=== PATIENT | female | born 1950 | race Caucasian/White ===

== ENCOUNTER → 2017-10-11 | Outpatient (RCR) | payer MEDICARE, OTHER ==
--- NOTE | 2017-09-13 13:28 | Diagnostic Imaging Report ---
PROCEDURE: L-SPINE 3V COMPARISON: None. INDICATIONS: SORE ON SACRUM, PRESSURE SORE, OSTEOMYELTITS FINDINGS: Lumbar spine demonstrates mild rotoscoliosis centered at L4 vertebral body. Mild wedge compression deformity of L2 vertebral body. Mild multilevel disc space narrowing especially at L3-L4. The paraspinal soft tissues are normal. Severe vascular calcifications. CONCLUSION: Mild to moderate diffuse degenerative changes in the lumbar spine. Mild wedge compression deformity of L2 vertebral body. Dictated by: Steve Adames M.D. on 09/13/2017 at 13:36 Electronically approved by: Steve Adames M.D. on 09/13/2017 at 13:36
--- NOTE | 2017-09-13 13:29 | Diagnostic Imaging Report ---
PROCEDURE:SACRUM \T\ COCCYX TECHNIQUE:2 views of the sacrum INDICATION:Sacral decubitus ulcer. COMPARISON:None. FINDINGS: Moderate degenerative changes in both SI joints. No periosteal reaction is identified to suggest osteomyelitis. CONCLUSION: No evidence of osteomyelitis. Dictated by: Steve Adames M.D. on 09/13/2017 at 13:37 Electronically approved by: Steve Adames M.D. on 09/13/2017 at 13:37
[2017-10-04 11:54] LABS: BASOPHILS # (AUTO) 0.1 (0.0-0.1); BASOPHILS % 0.9 % (0.0-1.0); EOSINOPHILS # (AUTO) 0.2 (0.0-0.4); EOSINOPHILS % 4.1 % (0.0-6.0); HEMATOCRIT 35.7 % (34.2-44.1); HEMOGLOBIN 11.5 g/dL (12.0-16.0); LYMPHOCYTES # (AUTO) 1.7 (1.0-3.2); LYMPHOCYTES % 31.1 % (18.0-39.1); MEAN CORPUSCULAR HEMOGLOBIN 28.1 pg (28-32); MEAN CORPUSCULAR HGB CONC 32.2 g/dL (31-35); MEAN CORPUSCULAR VOLUME 87.3 fL (81-99); MONOCYTES # (AUTO) 0.4 (0.2-0.8); NEUTROPHILS # (AUTO) 3.1 (2.1-6.9); NEUTROPHILS % 56.7 % (38.7-80.0); PLATELET COUNT 206 x10e3/uL (140-360); RED BLOOD COUNT 4.09 x10e6/uL (3.6-5.1); RED CELL DISTRIBUTION WIDTH 13.2 % (11.7-14.4)
[2017-10-04 12:23] LABS: ALBUMIN 3.4 g/dL (3.5-5.0); ANION GAP 12.1 mmol/L (8-16); CALCIUM 8.9 mg/dL (8.4-10.2); CREATININE, SERUM 0.95 mg/dL (0.57-1.11); POTASSIUM 4.1 mmol/L (3.5-5.1)
[~2017-10-11] MED LIST: ARIMIDEX1 MG PO; CALCIUM 1,0001 EACH PO; FISH OIL 1,2001 EACH PO; GABAPENTIN100 MG PO; GLIMEPIRIDE2 MG PO; HYDROCODON-ACE1 EAC9 PO; JANUMET XR 50-1 EAC1 PO; LIDOCAINE VISC 2% SOLN 15 ML UDC ONE; LISINOPRIL10 MG PO; METAXALONE800 MG PO; NIACIN500 M2 PO
== END ==
LOC: WCC 09-13 09:22
PROVIDERS: ATTEND Family Medicine
DX: E11.9 Type 2 diabetes mellitus without complications (principal); L89.153 Pressure ulcer of sacral region, stage 3; G90.09 Other idiopathic peripheral autonomic neuropathy; I10 Essential (primary) hypertension; Z74.01 Bed confinement status
CPT/HCPCS: 11042 ×3; 15271; 36415 ×2; 72100; 72220; 80053; 82948; 83036; 84134; 85025; 87071 ×2; 87075 ×2; 87186; 87205 ×2; 97605 ×4; G0463 ×2; Q4133

== ENCOUNTER → 2017-11-08 | Outpatient (RCR) | payer MEDICARE, OTHER | LOC: WCC 10-18 09:47 | PROVIDERS: ATTEND Family Medicine | DX: E11.9 Type 2 diabetes mellitus without complications (principal); L89.153 Pressure ulcer of sacral region, stage 3; G90.09 Other idiopathic peripheral autonomic neuropathy; I10 Essential (primary) hypertension; Z74.01 Bed confinement status | CPT/HCPCS: 15271 ×3; Q4131; Q4133 ×2 ==

== ENCOUNTER 2017-11-20 13:31 | Outpatient (RCR) | payer MEDICARE, OTHER ==
[~2017-11-20 13:31] MED LIST changes: -LIDOCAINE VISC 2% SOLN 15 ML UDC ONE
[2017-11-22] MEDS ORDERED: LIDOCAINE VISC 2% SOLN 15 ML UDC ONE (14:34)
[2017-11-29] MEDS ORDERED: LIDOCAINE VISC 2% SOLN 15 ML UDC ONE (13:06)
[2017-12-06] MEDS ORDERED: LIDOCAINE VISC 2% SOLN 15 ML UDC ONE (13:40)
== END 2017-12-09 ==
LOC: WCC 13:31
PROVIDERS: ATTEND Plastic Surgery
DX: E11.9 Type 2 diabetes mellitus without complications (principal); L89.153 Pressure ulcer of sacral region, stage 3; G90.09 Other idiopathic peripheral autonomic neuropathy; I10 Essential (primary) hypertension; Z74.01 Bed confinement status

== ENCOUNTER 2017-12-06 08:45 | Outpatient (RCR) | payer MEDICARE, OTHER ==
[~2017-12-06 08:45] MED LIST changes: +LIDOCAINE VISC 2% SOLN 15 ML UDC ONE
== END 2017-12-09 ==
LOC: WCC 08:45
PROVIDERS: ATTEND Family Medicine
DX: E11.9 Type 2 diabetes mellitus without complications (principal); L89.153 Pressure ulcer of sacral region, stage 3; G90.09 Other idiopathic peripheral autonomic neuropathy; I10 Essential (primary) hypertension; Z74.01 Bed confinement status
CPT/HCPCS: 15271 ×3; 17250; Q4131 ×3

== ENCOUNTER → 2017-12-22 | Outpatient (CLI) | payer MEDICARE, OTHER ==
[~2017-12-22] MED LIST changes: +GADOBENATE DIMEGLUMINE 1 ML IV ONE; -LIDOCAINE VISC 2% SOLN 15 ML UDC ONE
[2017-12-22 09:21] LABS: CREATININE, SERUM 1.1 mg/dL (0.57-1.11)
--- NOTE | 2017-12-26 10:41 | Diagnostic Imaging Report ---
TECHNIQUE: Magnetic resonance imaging of the PELVIS was performed WITH and WITHOUT, 20 cc of intravenous MultiHance. Motion artifact partially limits sensitivity and specificity of the exam. HISTORY: Pressure ulcer, sacral, rule out osteomyelitis COMPARISON: Sacral and coccyx radiographs September 13, 2017 FINDINGS: Images available to me for interpretation on December 26, 2017. Bone and bone marrow: Subtle cortical irregularity at the inferior margin of the residual coccyx, when allowing for the differences in modalities and motion artifact, this appears fairly similar to the comparison radiographs. Subtle bone marrow edema, hyperemia, and decreased fatty marrow signal adjacent to this margin. Joints and spine: Mild to moderate multifocal degenerative changes. Soft tissues: Mild focal edema and hyperemia adjacent to the described residual coccyx extending to the adjacent skin surface. No drainable fluid collection. IMPRESSION: 1. Findings which could reflect subtle acute/active osteomyelitis along the margin of the residual coccyx. These findings could reflect acute on chronic changes. 2. No soft tissue abscess. Signed by: Dr. Wilton Wright D.O., M.M.M. on 12/26/2017 10:37 AM
== END ==
LOC: MRI 08:29
PROVIDERS: ATTEND Family Medicine
DX: L89.153 Pressure ulcer of sacral region, stage 3 (principal)
CPT/HCPCS: 36415; 72197; 82565; 84520

== ENCOUNTER 2017-12-27 09:25 | Outpatient (RCR) | payer MEDICARE, OTHER ==
[~2017-12-27 09:25] MED LIST changes: -GADOBENATE DIMEGLUMINE 1 ML IV ONE; +LIDOCAINE VISC 2% SOLN 15 ML UDC ONE
[2017-12-27] MEDS ORDERED: LIDOCAINE VISC 2% SOLN 15 ML UDC ONE (16:50)
== END 2018-01-08 ==
LOC: WCC 09:25
PROVIDERS: ATTEND Family Medicine
DX: E11.9 Type 2 diabetes mellitus without complications (principal); L89.153 Pressure ulcer of sacral region, stage 3; G90.09 Other idiopathic peripheral autonomic neuropathy; I10 Essential (primary) hypertension; Z74.01 Bed confinement status

== ENCOUNTER 2018-01-24 09:21 | Outpatient (RCR) | payer MEDICARE, OTHER ==
[~2018-01-24 09:21] MED LIST changes: +LIDOCAINE/PRILOCAINE 2.5-2.5% KIT ONE
[2018-01-24] MEDS ORDERED: LIDOCAINE VISC 2% SOLN 15 ML UDC ONE (15:13)
== END 2018-02-08 ==
LOC: WCC 09:21
PROVIDERS: ATTEND Family Medicine
DX: L89.153 Pressure ulcer of sacral region, stage 3 (principal); E11.9 Type 2 diabetes mellitus without complications; G90.09 Other idiopathic peripheral autonomic neuropathy; I10 Essential (primary) hypertension; Z74.01 Bed confinement status

== ENCOUNTER 2018-03-07 11:17 | Outpatient (RCR) | payer MEDICARE, OTHER ==
[~2018-03-07 11:17] MED LIST changes: -LIDOCAINE VISC 2% SOLN 15 ML UDC ONE; -LIDOCAINE/PRILOCAINE 2.5-2.5% KIT ONE
[2018-03-07] MEDS ORDERED: LIDOCAINE VISC 2% SOLN 15 ML UDC ONE (17:03)
== END 2018-03-10 ==
LOC: WCC 11:17
PROVIDERS: ATTEND Family Medicine
DX: L89.153 Pressure ulcer of sacral region, stage 3 (principal); E11.9 Type 2 diabetes mellitus without complications; G90.09 Other idiopathic peripheral autonomic neuropathy; I10 Essential (primary) hypertension; Z74.01 Bed confinement status

== ENCOUNTER → 2018-03-13 | Outpatient (CLI) | payer MEDICARE, OTHER ==
[2018-03-13 14:09] LABS: CREATININE, SERUM 0.99 mg/dL (0.57-1.11)
== END ==
LOC: DX 13:21
PROVIDERS: ATTEND Internal Medicine Infectious Disease
DX: M86.9 Osteomyelitis, unspecified (principal)
CPT/HCPCS: 36415; 82565; 84520

== ENCOUNTER → 2018-03-15 | Outpatient (CLI) | payer MEDICARE, OTHER ==
[~2018-03-15] MED LIST changes: +IOPAMIDOL 370 MG/ML 200 ML INFUS..BTL INJ ONE; +LIDOCAINE HCL 2% LOCAL 20 ML VIAL ONE; +SODIUM CHLORIDE 0.9% 500ML 500 ML ONE
== END ==
LOC: DX 07:28
PROVIDERS: ATTEND Internal Medicine Infectious Disease
DX: M86.9 Osteomyelitis, unspecified (principal)
CPT/HCPCS: 77002; J2001; J7040; Q9967; 36569

== ENCOUNTER 2018-05-09 10:33 | Outpatient (RCR) | payer MEDICARE, OTHER ==
[~2018-05-09 10:33] MED LIST changes: -IOPAMIDOL 370 MG/ML 200 ML INFUS..BTL INJ ONE; -LIDOCAINE HCL 2% LOCAL 20 ML VIAL ONE; +LIDOCAINE VISC 2% SOLN 15 ML UDC ONE; -SODIUM CHLORIDE 0.9% 500ML 500 ML ONE
[2018-05-09] MEDS ORDERED: LIDOCAINE VISC 2% SOLN 15 ML UDC ONE (18:09)
== END 2018-05-11 ==
LOC: WCC 10:33
PROVIDERS: ATTEND Family Medicine
DX: E11.9 Type 2 diabetes mellitus without complications (principal); M86.68 Other chronic osteomyelitis, other site; L89.153 Pressure ulcer of sacral region, stage 3; G90.09 Other idiopathic peripheral autonomic neuropathy; I10 Essential (primary) hypertension; Z74.01 Bed confinement status
CPT/HCPCS: 87071; 87075; 87205

== ENCOUNTER → 2018-05-25 | Outpatient (CLI) | payer MEDICARE, OTHER ==
[~2018-05-25] MED LIST changes: -LIDOCAINE VISC 2% SOLN 15 ML UDC ONE
--- NOTE | 2018-05-25 11:59 | Diagnostic Imaging Report ---
TECHNIQUE: Magnetic resonance imaging of the PELVIS was performed WITHOUT injected contrast using standard departmental protocols. HISTORY: Pressure ulcer of sacrum, history of surgery "removal of cyst" 2004 COMPARISON: MRI of the pelvis December 22, 2017, radiographs of the sacrum September 13, 2017. FINDINGS: Bone and bone marrow: Subtle stable cortical irregularity at the inferior margin of the residual coccyx. Subtle stable bone marrow edema and decreased fatty marrow signal adjacent to this margin. Joints and spine: Stable mild to moderate multifocal degenerative changes. Soft tissues: Stable mild focal edema adjacent to the described residual coccyx extending to the adjacent skin surface. No drainable fluid collection. IMPRESSION: 1. Stable findings, no progressive osteomyelitis along the margin of the residual coccyx. 2. No soft tissue abscess. Signed by: Dr. Wilton Wright D.O., M.M.M. on 05/25/2018 11:56 AM
== END ==
LOC: MRI 07:33
PROVIDERS: ATTEND Family Medicine
DX: L89.153 Pressure ulcer of sacral region, stage 3 (principal)
CPT/HCPCS: 72195

== ENCOUNTER 2018-06-06 12:51 | Outpatient (RCR) | payer MEDICARE, OTHER ==
[~2018-06-06 12:51] MED LIST changes: +LIDOCAINE VISC 2% SOLN 15 ML UDC ONE
[2018-06-06] MEDS ORDERED: LIDOCAINE VISC 2% SOLN 15 ML UDC ONE (16:31)
[2018-06-15] MEDS ORDERED: CIPRO500 MG PO (11:04)
[2018-06-15] MEDS ORDERED: DOXYCYCLINE HY100 MG PO (11:04)
== END 2018-06-10 ==
LOC: WCC 12:51
PROVIDERS: ATTEND Family Medicine
DX: E11.9 Type 2 diabetes mellitus without complications (principal); M86.68 Other chronic osteomyelitis, other site; L89.153 Pressure ulcer of sacral region, stage 3; G90.09 Other idiopathic peripheral autonomic neuropathy; I10 Essential (primary) hypertension; Z74.01 Bed confinement status

== ENCOUNTER → 2018-06-21 | Day surgery (SDC) | payer MEDICARE, OTHER ==
[2018-06-15 12:14] LABS: BASOPHILS # (AUTO) 0.1 (0.0-0.1); BASOPHILS % 0.7 % (0.0-1.0); EOSINOPHILS # (AUTO) 0.3 (0.0-0.4); EOSINOPHILS % 3.8 % (0.0-6.0); HEMATOCRIT 36.2 % (34.2-44.1); HEMOGLOBIN 11.9 g/dL (12.0-16.0); LYMPHOCYTES # (AUTO) 1.9 (1.0-3.2); LYMPHOCYTES % 26.8 % (18.0-39.1); MEAN CORPUSCULAR HEMOGLOBIN 28.1 pg (28-32); MEAN CORPUSCULAR HGB CONC 32.9 g/dL (31-35); MEAN CORPUSCULAR VOLUME 85.6 fL (81-99); MONOCYTES # (AUTO) 0.5 (0.2-0.8); MONOCYTES % 6.8 % (4.4-11.3); NEUTROPHILS # (AUTO) 4.3 (2.1-6.9); NEUTROPHILS % 61.6 % (38.7-80.0); PLATELET COUNT 175 x10e3/uL (140-360); RED BLOOD COUNT 4.23 x10e6/uL (3.6-5.1); RED CELL DISTRIBUTION WIDTH 12.7 % (11.7-14.4)
--- NOTE | 2018-06-15 12:19 | Diagnostic Imaging Report ---
EXAM: XR CHEST 2 VIEWS DATE: 06/15/2018 10:56 AM INDICATION: Preoperative, right chest wall port COMPARISON: None FINDINGS: Lines and Tubes: Right IJ port present with tip overlying SVC. Heart and Mediastinum: The heart is not enlarged. Mild aortic vascular calcifications present. There is prominence of the pulmonary trunk/left pulmonary artery. Lungs and Pleura: Elevation right hemidiaphragm. No focal consolidation. Bones and Soft Tissues: Small ossific density superior to left humeral head suggesting calcific tendinitis. IMPRESSION: 1. Prominent pulmonary trunk/left pulmonary artery raising question of pulmonary hypertension. Signed by: Dr. Terrence Mckeon MD on 06/15/2018 12:15 PM
[2018-06-15 12:37] LABS: ANION GAP 16.9 mmol/L (8-16); CALCIUM 10.9 mg/dL (8.4-10.2); CREATININE, SERUM 1.35 mg/dL (0.57-1.11); POTASSIUM 4.9 mmol/L (3.5-5.1)
[~2018-06-21] MED LIST changes: +BACITRACIN 50,000 UNIT VIAL ONE; +CEFAZOLIN SOD 1 GM VIAL ONE; +CIPRO500 MG PO; +DEXAMETHASONE SOD PHOS INJ 4 MG/ML VIAL ONE; +DOXYCYCLINE HY100 MG PO; +EPHEDRINE SULFATE INJ 50 MG/10 ML SYR ONE; +FENTANYL CITRATE/PF 100MCG/2 ML INJ ONE; +GLYCOPYRROLATE INJ 1MG/ 5 ML SYR ONE; +LIDOCAINE HCL 2% LOCAL INJ 5 ML SDV VIAL INJ ONE; -LIDOCAINE VISC 2% SOLN 15 ML UDC ONE; +MIDAZOLAM HCL 2 MG/2 ML VIAL ONE; +NEOSTIGMINE 5 MG/5ML SYR ONE; +ONDANSETRON HCL INJ 2 MG/ML VIAL ONE; +PROPOFOL IV EMULSION 10 MG/ML 20 ML VIAL ONE; +SEVOFLURANE INHAL SOLN 250 ML PEN BTL ONE
[2018-06-21 12:30] VITALS: BP 118/69
--- NOTE | 2018-06-22 10:01 | Operative Report ---
DATE OF PROCEDURE: June 21, 2018 NO DICTATION, LENGTH 0:10 Job#: [id number] RI
--- NOTE | 2018-06-22 12:15 | Operative Report ---
DATE OF PROCEDURE: June 21, 2018 PREOPERATIVE DIAGNOSIS: Sacral ulcer stage IV. POSTOPERATIVE DIAGNOSIS: Sacral ulcer stage IV. PROCEDURES PERFORMED 1. Excision of sacral ulcer. 2. Fasciocutaneous flap closure. ANESTHESIA: General. HISTORY: The patient is a 68-year-old female who has a stage IV sacral ulcer, which has been recalcitrant to healing despite conservative measures. The patient now presents for definitive excision and fasciocutaneous flap closure. The risks, benefits, and alternatives were discussed with the patient and she is prepared to undergo the procedure as outlined. DETAILS OF PROCEDURE: The patient was marked preoperatively in the holding area. She is brought to the operating theater and after the induction of adequate general anesthesia, she is prepped and draped in a prone position and a time out was performed. The procedure was begun by excising the complete ulcer all the way through the skin down to the level of the sacrum. Once the ulcer was removed, the wound was then pulse lavaged with several liters of antibiotic containing solution. At this point, the wound bed was curetted of all the granulation tissue which has formed. The defect measures approximately 6 cm in diameter and approximately 5 cm in length. A fasciocutaneous flap known as the reading man flap was designed. Essentially a transverse incision was marked out from the apex of the ulcer for a distance of one and a half times the width of the ulcer so this limb measured approximately 9 to 10 cm in length and this extended to the right side and then using a 60-degree angle, the back cut was then made inferiorly. The incision was then made through the skin and subcutaneous tissues and bleeding was controlled using the electrocautery. The incision was deepened through the subcutaneous tissue until the fascia of the gluteus muscle was identified. At this point, the fasciocutaneous flap was then elevated in this plane. Bleeding was controlled using electrocautery. Once the flap was elevated, it transposed easily into the defect and the final cut was an incision from the apex of the ulcer extending superiorly in order to allow closure of the primary defect. With the flaps transposed without any tension, several excisions were required in order to allow the redundant skin and subcutaneous tissue to lay nicely. After these excisions were performed, the wound was checked for hemostasis. A 15-Syriac flat SILVIA drain was placed through a separate percutaneous stab wound and then secured to the skin using 3-0 nylon suture. The flaps were then inset with 3-0 Vicryl suture in an interrupted buried fashion to approximate the fascia and then 4-0 nylon suture was used in an interrupted horizontal mattress fashion. With the completion of the procedure, the flaps were well vascularized. The incision was hemostatic. The drain was placed on suction. A VAC dressing was then applied over Xeroform gauze and Bactroban ointment to protect the surgical incisions. The VAC was set for 125 mm of continuous negative pressure. At this point, the patient was made supine and she was extubated and returned to recovery room in satisfactory condition and discharged with a postoperative instruction sheet as well as a followup appointment. Job#: [id number] CHANTAL
--- OUTSIDE RECORDS SUMMARY | 2018-06-26 12:53 | XMS REPORT | Summary of Care ---
Author Organization Unknown Address Unknown Phone Unavailable Encounter [facility](JEFF) [id number] Date(s): 07/28/14 - 07/28/14 [facility] [address] [address] Discharge Disposition: Home Physician Attending: Abhishek Alonzo MD Physician Admitting: Abhishek Alonzo MD Physician_Referring: Abhishek Alonzo MD Reason for Visit 787.20 Vital Signs 1 2 3 Most recent to oldest [Reference Range]: 167.64 cm (07/24/14 2:14 PM) 167.64 cm (07/24/14 1:32 PM) Height 98.1 DegF (07/24/14 2:14 PM) Temperature Oral [96.4-99.1 DegF] 144 mmHg *HI* (07/28/14 10:01 AM) 115 mmHg (07/28/14 9:45 AM) 97 mmHg (07/28/14 9:26 AM) Systolic Blood Pressure [90-140 mmHg] 67 mmHg (07/28/14 10:01 AM) 53 mmHg *LOW* (07/28/14 9:45 AM) 39 mmHg *LOW* (07/28/14 9:26 AM) Diastolic Blood Pressure [60-90 mmHg] 18 BRMIN (07/28/14 10:01 AM) 18 BRMIN (07/28/14 9:45 AM) 18 BRMIN (07/28/14 9:26 AM) Respiratory Rate [14-20 BRMIN] 69 bpm (07/24/14 2:14 PM) Peripheral Pulse Rate [60-100 bpm] 115.455 kg (07/24/14 2:14 PM) 115.455 kg (07/24/14 1:32 PM) Weight 41.08 m2 (07/24/14 2:14 PM) 41.08 m2 (07/24/14 1:32 PM) Body Mass Index Problem List Condition Effective Dates Status Health Status Informant CA - Breast Active cancer(Confirmed)1 DM - Diabetes Active mellitus(Confirmed) Effect of radiation Resolved therapy(Confirmed) Effects of Resolved chemotherapy(Confirm ed) HTN - Active Hypertension(Confirm ed) 1bilateral breast BRAC 2+, Allergies, Adverse Reactions, Alerts Substance Reaction Severity Status NKDA Active Medications Arimidex 1 mg oral tablet 1 mg=1 tab, PO, Daily, # 30 tab, 0 Refill(s) Start Date: 07/24/14 Status: Ordered gabapentin 300 mg oral capsule 300 mg=1 cap, PO, TID, # 90 cap, 0 Refill(s) Start Date: 07/24/14 Status: Ordered Levemir FlexTouch 100 units/mL subcutaneous solution 15 unit am and 30 units pm subcutaneous injection, 0 Refill(s) Special Instructions: 15 unit am and 30 units pm subcutaneous injection Start Date: 07/24/14 Status: Ordered lisinopril 10 mg oral tablet 10 mg=1 tab, PO, Daily, # 30 tab, 0 Refill(s) Start Date: 07/24/14 Status: Ordered Sodium Chloride 0.9% IV 500 mL 500 mL, Rate: 25 ml/hr, Infuse over: 20 hr, Route: IV, Dosing Weight 115.455 kg, Total Volume: 500, Start date: 07/28/14 7:11:00, Duration: 30 day, Stop date: 10/28/13 7:10:00 Start Date: 07/28/14 Stop Date: 07/28/14 Status: Discontinued Results ELECTROLYTES Most recent to 1 oldest [Reference Range]: Sodium Lvl [135-145 139 mEq/L mEq/L] (07/28/14 7:45 AM) Potassium Lvl 3.9 mEq/L [3.5-5.1 mEq/L] (07/28/14 7:45 AM) Chloride Lvl [95-109 105 mEq/L mEq/L] (07/28/14 7:45 AM) CO2 [24-32 mEq/L] 27 mEq/L (07/28/14 7:45 AM) AGAP [10.0-20.0 10.9 mEq/L mEq/L] (07/28/14 7:45 AM) CHEM PANEL Most recent to 1 oldest [Reference Range]: Creatinine Lvl 0.8 mg/dL [0.5-1.4 mg/dL] (07/28/14 7:45 AM) eGFR 78 mL/min/1.73m2 1 *NA* (07/28/14 7:45 AM) BUN [7-22 mg/dL] 20 mg/dL (07/28/14 7:45 AM) Glucose Lvl [70-99 131 mg/dL 2 mg/dL] *HI* (07/28/14 7:45 AM) Calcium Lvl 9.0 mg/dL [8.5-10.5 mg/dL] (07/28/14 7:45 AM) 1Result Comment: The eGFR is calculated using the CKD-EPI formula. In most young, healthy individuals the eGFR will be >90 mL/min/1.73m2. The eGFR declines with age. An eGFR of 60-89 may be normal in some populations, particularly the elderly, for whom the CKD-EPI formula has not been extensively validated. Use of the eGFR is not recommended in the following populations: Individuals with unstable creatinine concentrations, including patients and those with serious co-morbid conditions. Patients with extremes in muscle mass or diet. The data above are obtained from the National Kid[employer] Education Program ( NKDEP) which additionally recommends that when the eGFR is used in patients with extremes of body mass index for purposes of drug dosing, the eGFR should be mul tiplied by the estimated BMI. 2Interpretive Data: Adult reference range values reflect the clinical guidelines of the [place] [employer]. Medications Administered During Your Visit No data available for this section Immunizations No data available for this section Social History Social History Type Response Alcohol Previous treatment: None Smoking Status Former smoker, Exposure to Tobacco Smoke None, Cigarette Smoking Last 365 Days No, Reg Smoking Cessation Counseling No
--- OUTSIDE RECORDS SUMMARY | 2018-06-26 12:53 | XMS REPORT | Clinical Summary ---
Author Author [facility] Organization [facility] Address Unknown Phone Unavailable Care Team Providers Care Quiller Tender Name Role Phone Javon Fritz PCP Allergies No Known Allergies Current Medications Prescription Sig. Disp. Refills Start End Date Status Date gabapentin (NEURONTIN) 10/30/19 Active 300 mg capsule 18 lisinopril 01/02/20 Active (PRINIVIL,ZESTRIL) 10 mg 18 tablet glimepiride (AMARYL) 2 MG 01/19/20 Active tablet 18 Active Problems No known active problems Encounters Date Type Specialty Care Team Description 02/06/2018 [facility] Radiology Javed Concepcion MD Pilonidal cyst with Encounter abscess; Chronic osteomyelitis of other site with draining sinus 02/06/2018 [facility] Radiology Javed Concepcion MD Pilonidal cyst with Encounter abscess; Chronic osteomyelitis of other site with draining sinus 01/23/2018 [facility] Radiology Javed Concepcion MD Encounter 01/23/2018 Lab Lab Javed Concepcion MD Chronic osteomyelitis with draining sinus, other site (Primary Dx); Pilonidal cyst with abscess 01/23/2018 Office Visit Orthopedic Surgery Tyler Baker PA-C Pilonidal cyst with abscess (Primary Dx); Chronic osteomyelitis of other site with draining sinus 01/23/2018 Procedure Pass Radiology 01/23/2018 Procedure Pass Radiology 01/23/2018 Ancillary Radiology Javed Concepcion MD Orders 12/13/2017 Documentation Orthopedic Surgery Javed Concepcion MD after 06/20/2017 Family History Medical History Relation Name Comments Clotting disorder Neg Hx Social History Tobacco Use Types Packs/Day Years Used Date Former Smoker Alcohol Use Drinks/Week oz/Week Comments No Sex Assigned at Date Recorded Not on file Last Filed Vital Signs Not on file Plan of Treatment Health Maintenance Due Date Last Done Comments BREAST CANCER SCREENING 1999 COLON CANCER SCREENING 1999 SHINGRIX VACCINE (#1) 1999 ZOSTER VACCINE 2009 PNEUMOCOCCAL 2014 POLYSACCHARIDE VACCINE AGE 65 AND OVER PNEUMOCOCCAL-13 2014 INFLUENZA VACCINE 04/11/2018 Procedures Procedure Name Priority Date/Time Associated Diagnosis Comments MRI SACRUM AND OR COCCYX Routine 02/06/2018 Pilonidal cyst with Results for this W WO CONTRAST 11:46 AM CDT abscess procedure are in the Chronic osteomyelitis of results section. other site with draining sinus CT SACRUM/COCCYX Routine 02/06/2018 Pilonidal cyst with Results for this 8:59 AM CDT abscess procedure are in the Chronic osteomyelitis of results section. other site with draining sinus ZZESTIMATED GFR Routine 01/23/2018 Results for this 10:30 AM CDT procedure are in the results section. COMPREHENSIVE METABOLIC Routine 01/23/2018 Chronic osteomyelitis Results for this PANEL 10:30 AM CDT with draining sinus, procedure are in the other site results section. Pilonidal cyst with abscess C-REACTIVE PROTEIN Routine 01/23/2018 Chronic osteomyelitis Results for this 10:30 AM CDT with draining sinus, procedure are in the other site results section. Pilonidal cyst with abscess SEDIMENTATION RATE Routine 01/23/2018 Chronic osteomyelitis Results for this 10:30 AM CDT with draining sinus, procedure are in the other site results section. Pilonidal cyst with abscess CBC HEMOGRAM Routine 01/23/2018 Chronic osteomyelitis Results for this 10:30 AM CDT with draining sinus, procedure are in the other site results section. Pilonidal cyst with abscess MRI LOWER EXTREMITY Routine 12/22/2017 Results for this EXTERNAL STUDY 9:23 AM CDT procedure are in the results section. after 06/20/2017 Results * MRI Sacrum And Or Coccyx W Wo Contrast (02/06/2018 11:46 AM) Narrative Performed At EXAMINATION:MRI SACRUM AND OR COCCYX W WO CONTRAST [facility] CLINICAL HISTORY:L05.01 Pilonidal cyst with abscess, M86.48 Chronic osteomyelitis with draining sinusother site, mass COMPARISON:CT of the sacrum and coccyx dated February 06, 2018 TECHNIQUE: Multiplanar MRI imaging with and withoutIV Gadolinium was performed. IMPRESSION: There are postsurgical changes related to patient's recent surgical intervention and resection of the pilonidal sinus. There is a bone welch edema and enhancement in the posterior aspect of the coccyx adjacent to the surgical resection site which may represent postsurgical changes. However bone infection and osteomyelitis cannot be excluded. There is no drainable fluid collection. Correlation with WBC or gallium nuclear scan is recommended. [id number] Procedure Note Hm Interface, Radiology Results Incoming - 02/07/2018 9:32 AM CDT EXAMINATION: MRI SACRUM AND OR COCCYX W WO CONTRAST CLINICAL HISTORY: L05.01 Pilonidal cyst with abscess, M86.48 Chronic osteomyelitis with draining sinus other site, mass COMPARISON: CT of the sacrum and coccyx dated February 06, 2018 TECHNIQUE: Multiplanar MRI imaging with and without IV Gadolinium was performed. IMPRESSION: There are postsurgical changes related to patient's recent surgical intervention and resection of the pilonidal sinus. There is a bone welch edema and enhancement in the posterior aspect of the coccyx adjacent to the surgical resection site which may represent postsurgical changes. However bone infection and osteomyelitis cannot be excluded. There is no drainable fluid collection. Correlation with WBC or gallium nuclear scan is recommended. [id number] Performing Organization Address City/State/Zipcode Phone Number [facility] [address] [place] [address] * CT Sacrum/Coccyx (02/06/2018 8:59 AM) Narrative Performed At EXAMINATION:CT SACRUM COCCYX [facility] CLINICAL HISTORY:L05.01 Pilonidal cyst with abscess, M86.48 Chronic osteomyelitis with draining sinusother site, PAIN COMPARISON:None. FINDINGS: There are degenerative changes of the sacroiliac joints with vacuum density in both joint spaces, surrounding sclerosis and small ventral osteophytes. There is a small nonspecific area of sclerosis in the left iliac bone which could have benign or malignant etiologies. There is inflammatory changes around the distal sacrum and coccyx with absence of portions of the bone density in this region which could be from infection as given by the history among other etiologies. This can be further evaluated with MRI exam and nuclear medicine imaging if indicated. There are soft tissue areas of inflammatory changes or scar with thickening below the coccyx extending into the region of the anus and I cannot exclude a fissure. There is also some soft tissue inflammatory thickening along the posterior wall of the rectum. There is calcification of durant of many of the visualized arteries in the pelvis and lower abdomen. The lumbar spine will be dictated under a separate report. There is prominent stool in the distal colon and rectum. The study was not performed for proper imaging of the small intestines or for small fluid collections in the abdomen and pelvis. This can be further evaluated with a CT of the abdomen and pelvis with oral and intravenous contrast if indicated. IMPRESSION: Soft tissue inflammatory changes around the distal sacrum and coccyx with absence of the normal bone density in these regions. This could be from recent or old infection as given by the history. I do not see a large fluid collection in this area although tiny areas of fluid could be missed on CT exams without contrast.There are soft tissue areas of inflammatory changes below the coccyx extending into the region of the anus and I cannot exclude a fissure. Recommend clinical correlation. There is also soft tissue thickening along the posterior wall of the rectum. Although this could be from infection I can also not exclude tumor. Nonspecific small area of sclerosis in the left iliac bone which could have benign or malignant etiologies and is of questionable significance. The lumbar spine will be dictated under a separate report. [facility]-[id number] Procedure Note Hm Interface, Radiology Results Incoming - 02/06/2018 9:14 AM CDT EXAMINATION: CT SACRUM COCCYX CLINICAL HISTORY: L05.01 Pilonidal cyst with abscess, M86.48 Chronic osteomyelitis with draining sinus other site, PAIN COMPARISON: None. FINDINGS: There are degenerative changes of the sacroiliac joints with vacuum density in both joint spaces, surrounding sclerosis and small ventral osteophytes. There is a small nonspecific area of sclerosis in the left iliac bone which could have benign or malignant etiologies. There is inflammatory changes around the distal sacrum and coccyx with absence of portions of the bone density in this region which could be from infection as given by the history among other etiologies. This can be further evaluated with MRI exam and nuclear medicine imaging if indicated. There are soft tissue areas of inflammatory changes or scar with thickening below the coccyx extending into the region of the anus and I cannot exclude a fissure. There is also some soft tissue inflammatory thickening along the posterior wall of the rectum. There is calcification of durant of many of the visualized arteries in the pelvis and lower abdomen. The lumbar spine will be dictated under a separate report. There is prominent stool in the distal colon and rectum. The study was not performed for proper imaging of the small intestines or for small fluid collections in the abdomen and pelvis. This can be further evaluated with a CT of the abdomen and pelvis with oral and intravenous contrast if indicated. IMPRESSION: Soft tissue inflammatory changes around the distal sacrum and coccyx with absence of the normal bone density in these regions. This could be from recent or old infection as given by the history. I do not see a large fluid collection in this area although tiny areas of fluid could be missed on CT exams without contrast. There are soft tissue areas of inflammatory changes below the coccyx extending into the region of the anus and I cannot exclude a fissure. Recommend clinical correlation. There is also soft tissue thickening along the posterior wall of the rectum. Although this could be from infection I can also not exclude tumor. Nonspecific small area of sclerosis in the left iliac bone which could have benign or malignant etiologies and is of questionable significance. The lumbar spine will be dictated under a separate report. [facility]-[id number] Performing Organization Address City/[facility]/Zipcode Phone Number [place] [phone] [place] [phone] * Estimated GFR (01/23/2018 10:30 AM) GFR Non Af Amer 49 (A) mL/min/1.73 m2 [facility] DEPARTMENT OF PATHOLOGY AND GENOMIC MEDICINE GFR Af Amer 60 mL/min/1.73 m2 [facility] DEPARTMENT OF Comment: PATHOLOGY AND Chronic kidney disease: <60 GENOMIC MEDICINE mL/min/1.73m2 Kidney failure: <15 mL/min/1.73m2 The estimated GFR is calculated from the IDMS-traceable Modification of Diet in Renal Disease Equation. The accuracy of the calculation is poor when the creatinine is normal. Calculated values >90 mL/min/1.73m2 are not reported. This equation has not been validated in children (<18 years), women, the elderly (>70 years), or ethnic groups other than Caucasians and Americans. Specimen Plasma specimen Performing Organization Address City/State/Zipcode Phone Number [address] [address] PATHOLOGY AND GENOMIC MEDICINE * Sedimentation rate (01/23/2018 10:30 AM) Sedimentation rate 14 0 - 20 mm/hr [facility] DEPARTMENT OF PATHOLOGY AND GENOMIC MEDICINE Specimen Blood Performing Organization Address City/[facility] [place] [address] PATHOLOGY AND GENOMIC MEDICINE * CBC hemogram (01/23/2018 10:30 AM) WBC 8.01 4.50 - 11.00 k/uL [facility] DEPARTMENT OF PATHOLOGY AND GENOMIC MEDICINE RBC 4.24 4.20 - 5.50 m/uL [facility] DEPARTMENT OF PATHOLOGY AND GENOMIC MEDICINE HGB 12.3 12.0 - 16.0 g/dL [facility] DEPARTMENT OF PATHOLOGY AND GENOMIC MEDICINE HCT 36.8 (L) 37.0 - 47.0 % [facility] DEPARTMENT OF PATHOLOGY AND GENOMIC MEDICINE MCV 86.8 82.0 - 100.0 fL [facility] DEPARTMENT OF PATHOLOGY AND GENOMIC MEDICINE MCH 29.0 27.0 - 34.0 pg [facility] DEPARTMENT OF PATHOLOGY AND GENOMIC MEDICINE MCHC 33.4 31.0 - 37.0 g/dL [facility] DEPARTMENT OF PATHOLOGY AND GENOMIC MEDICINE RDW - SD 43.2 37.0 - 55.0 fL [facility] DEPARTMENT OF PATHOLOGY AND GENOMIC MEDICINE MPV 11.2 8.8 - 13.2 fL [facility] DEPARTMENT OF PATHOLOGY AND GENOMIC MEDICINE Platelet count 216 150 - 400 k/uL [facility] DEPARTMENT OF PATHOLOGY AND GENOMIC MEDICINE Nucleated RBC 0.00 /100 WBC [facility] DEPARTMENT OF PATHOLOGY AND GENOMIC MEDICINE Specimen Blood Performing Organization Address [facility] [place] [address] PATHOLOGY AND GENOMIC MEDICINE * C-reactive protein (01/23/2018 10:30 AM) CRP 0.61 (H) 0.00 - 0.50 mg/dL [facility] DEPARTMENT OF PATHOLOGY AND GENOMIC MEDICINE Specimen Plasma specimen Performing Organization Address City/[facility]/[place] [address] PATHOLOGY AND GENOMIC MEDICINE * Comprehensive metabolic panel (01/23/2018 10:30 AM) Sodium 139 135 - 148 mEq/L [facility] DEPARTMENT OF PATHOLOGY AND GENOMIC MEDICINE Potassium 4.8 3.5 - 5.0 mEq/L [facility] DEPARTMENT OF PATHOLOGY AND GENOMIC MEDICINE Chloride 103 98 - 112 mEq/L [facility] DEPARTMENT OF PATHOLOGY AND GENOMIC MEDICINE CO2 23 (L) 24 - 31 mEq/L [facility] DEPARTMENT OF PATHOLOGY AND GENOMIC MEDICINE Anion gap 13@ANIO 7 - 15 mEq/L [facility] DEPARTMENT OF PATHOLOGY AND GENOMIC MEDICINE BUN 32 (H) 8 - 23 mg/dL [facility] DEPARTMENT OF PATHOLOGY AND GENOMIC MEDICINE Creatinine 1.1 (H) 0.5 - 0.9 mg/dL [facility] DEPARTMENT OF PATHOLOGY AND GENOMIC MEDICINE Glucose 150 (H) 65 - 99 mg/dL [facility] DEPARTMENT OF PATHOLOGY AND GENOMIC MEDICINE Calcium 9.8 8.8 - 10.2 mg/dL [facility] DEPARTMENT OF PATHOLOGY AND GENOMIC MEDICINE Protein 7.8 6.3 - 8.3 g/dL [facility] DEPARTMENT OF Comment: PATHOLOGY AND [place] GENOMIC MEDICINE 4.6-7.0 g/dL 1 week 4.4-7.6 g/dL 7 months-1year 5.1-7.3 g/dL 1-2 years5.6-7 .5 g/dL >3 years6.0-8 .0 g/dL 18-150 6.3-8.3 g/dL Albumin 3.9 3.5 - 5.0 g/dL [facility] DEPARTMENT OF PATHOLOGY AND GENOMIC MEDICINE A/G ratio 1.0 0.7 - 3.8 [facility] DEPARTMENT OF PATHOLOGY AND GENOMIC MEDICINE Alkaline phosphatase 58 35 - 104 U/L [facility] DEPARTMENT OF PATHOLOGY AND GENOMIC MEDICINE AST 21 10 - 35 U/L [facility] DEPARTMENT OF PATHOLOGY AND GENOMIC MEDICINE ALT 15 5 - 50 U/L [facility] DEPARTMENT OF PATHOLOGY AND GENOMIC MEDICINE Total bilirubin 0.4 0.0 - 1.2 mg/dL [facility] DEPARTMENT OF PATHOLOGY AND GENOMIC MEDICINE Specimen Plasma specimen Performing Organization Address City/State/Zipcode Phone Number [facility] DEPARTMENT OF [address] [place] [phone] PATHOLOGY AND GENOMIC MEDICINE * MRI Lower Extremity External Study (12/22/2017 9:23 AM) Narrative Performed At This exam was not acquired at a [facility] facility and has not been [facility] interpreted by a [facility] Provider.The exam was imported into our imaging system for comparisons purposes. Performing Organization Address City/State/Zipcode Phone Number [facility] [address] [place] [phone] after 06/20/2017 Insurance Payer Benefit Subscriber ID Type Phone Address Plan / Group MEDICARE MEDICARE xxxxxxxxxx Medicare [place] PART A AND B COMMERCIAL MISC MISC xxxxxxxxxx Commercial COMMERCIAL
--- OUTSIDE RECORDS SUMMARY | 2018-06-26 12:53 | XMS REPORT | Summary of Care ---
Author Organization Unknown Address Unknown Phone Unavailable Encounter [facility](FIN) [id number] Date(s): 01/09/15 - 01/09/15 [facility] Outpatient Imaging - [place] [address] [place] [id number] [facility] [phone] Discharge Disposition: Home Physician Attending: Paul Petty MD Vital Signs No data available for this section Problem List Condition Effective Dates Status Health Status Informant [place] - Breast Active cancer(Confirmed)1 DM - Diabetes Active mellitus(Confirmed) Effect of radiation Resolved therapy(Confirmed) Effects of Resolved chemotherapy(Confirm ed) HTN - Active Hypertension(Confirm ed) 1bilateral breast BRAC 2+, Allergies, Adverse Reactions, Alerts Substance Reaction Severity Status NKDA Active Medications No data available for this section Results No data available for this section Immunizations No data available for this section Procedures No data available for this section Social History Social History Type Response Alcohol Previous treatment: None. Smoking Status Former smoker; Stopped at age: 42; Exposure to Tobacco Smoke None; Cigarette Smoking Last 365 Days No; Reg Smoking Cessation Counseling No Assessment and Plan No data available for this section
--- OUTSIDE RECORDS SUMMARY | 2018-06-26 12:53 | XMS REPORT ---
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 Allergies, Adverse Reactions, Alerts This patient has no known allergies or adverse reactions. Medications This patient has no known medications. Results Test Description Test Time Test Comments Text Results Atomic Results Result Comments CHEST 2 VIEWS 2018-06-15 12:14:00 [place] [address] Patient Name: CARLOS RUSSELL MR #: [id number] : 1950 Age/Sex: 68/F Req #: [id number] Adm Physician: Ordered by: NIKHIL ALVA MD Report #: [id number] Location: OR Room/Bed: Procedure: [id number] DX/CHEST 2 VIEWS Exam Date: Exam Time: REPORT STATUS: Signed EXAM: XR CHEST 2 VIEWS DATE: 06/15/2018 10:56 AM INDICATION: Preoperative, right chest wall port COMPARISON: None FINDINGS: Lines and Tubes: Right IJ port present with tip overlying SVC. Heart and Mediastinum: The heart is not enlarged. Mild aortic vascular calcifications present. There is prominence of the pulmonary trunk/left pulmonary artery. Lungs and Pleura: Elevation right hemidiaphragm. No focal consolidation. Bones and Soft Tissues: Small ossific density superior to left humeral head suggesting calcific tendinitis. IMPRESSION: 1. Prominent pulmonary trunk/left pulmonary artery raising question of pulmonary hypertension. Signed by: Dr. Terrence Mckeon MD on 06/15/2018 12:15 PM Dictated By: TERRENCE MCKEON MD 14 Transcribed By: JANE on 06/15/181214 COPY TO: NIKHIL ALVA MD MRI PELVIS WO 2018-05-25 11:39:00 [place] [address] Patient Name: CARLOS RUSSELL MR #: [id number] : 1950 Age/Sex: 68/F Req #: [id number] Adm Physician: Ordered by: AZRA EVANS MD Report #: [id number] Location: MRI Room/Bed: Procedure: [id number] MRI/MRI PELVIS WO Exam Date: Exam Time: REPORT STATUS: Signed TECHNIQUE: Magnetic resonance imaging of the PELVIS was performed WITHOUT injected contrast using standard departmental protocols. HISTORY: Pressure ulcer of sacrum, history of surgery "removal of cyst" 2004 COMPARISON: MRI of the pelvis December 22, 2017, radiographs of the sacrum September 13, 2017. FINDINGS: Bone and bone marrow: Subtle stable cortical irregularity at the inferior margin of the residual coccyx. Subtle stable bone marrow edema and decreased fatty marrow signal adjacent to this margin. Joints and spine: Stable mild to moderate multifocal degenerative changes. Soft tissues: Stable mild focal edema adjacent to the described residual coccyx extending to the adjacent skin surface. No drainable fluid collection. IMPRESSION: 1. Stable findings, no progressive osteomyelitis along the margin of the residual coccyx. 2. No soft tissue abscess. Signed by: Dr. Gil Wright D.O., M.M.M. on 05/25/2018 11:56 AM Dictated By: GIL WRIGHT DO 55 Transcribed By: JANE on 05/25/181155 COPY TO: AZRA EVANS MD SPECIAL PROCEDURE IN DIGITAL PRODUCTION ARTIST 2018-03-16 08:54:00 [place] [address] Patient Name: CARLOS RUSSELL MR #: [id number] : 1950 Age/Sex: 67/F Req #: [id number] [facility] Physician: Ordered by: YULY NYE MD Report #: [id number] Location: DX Room/Bed: Procedure: [id number] IR/SPECIAL PROCEDURE IN DIGITAL PRODUCTION ARTIST Exam Date: Exam Time: REPORT STATUS: Signed PROCEDURE: PICC LINE INSERTION COMPARISON: None. INDICATIONS: Previously attempted a PICC line resulting in a midline as the catheter would not pass centrally. COMPLICATIONS: None MEDICATIONS: None BLOOD LOSS: None PROCEDURE: The right arm midline noted terminating near the axilla. Midline was injected with contrast material revealing a prominent venous valve at the tip. A 0.018 " steerable guidewire was advanced through the midline. Wire was able to be passed through the prominent venous valve. A new PICC line was then placed over the wire. The tip localized to the right atrium. Line is okay for immediate use. CONCLUSION: Exchange of a midline for a PICC utilizing fluoroscopic guidance. Christiano Dougherty D.O. Dictated by: Christiano Dougherty D.O. on 03/16/2018 at 8:54 Electronically approved by: Christiano Dougherty D.O. on 03/16/2018 at 9:25 Dictated By: CHRISTIANO DOUGHERTY DO 4 Transcribed By: LINNETTE on 03/16/18924 COPY TO: YULY NYE MD MRI PELVIS WOW [place] [address] Patient Name: CARLOS RUSSELL MR #: [id number] : 1950 Age/Sex: 67/F Req #: [id number] Adm Physician: Ordered by: AZRA EVANS MD Report #: [id number] Location: MRI Room/Bed: Procedure: [id number] MRI/MRI PELVIS WOW Exam Date: Exam Time: REPORT STATUS: Signed TECHNIQUE: Magnetic resonance imaging of the PELVIS was performed WITH and WITHOUT, 20 cc of intravenous MultiHance. Motion artifact partially limits sensitivity and specificity of the exam. HISTORY: Pressure ulcer, sacral, rule out osteom yelitis COMPARISON: Sacral and coccyx radiographs September 13, 2017 FINDINGS: Images available to me for interpretation on December 26, 2017. Bone and bone marrow: Subtle cortical irregularity at the inferior margin of the residual coccyx, when allowing for the differences in modalities and motion artifact, this appears fairly similar to the comparison radiographs. Subtle bone marrow edema, hyperemia, and decreased fatty marrow signal adjacent to this margin. Joints and spine: Mild to moderate multifocal degenerative changes. Soft tissues: Mild focal edema and hyperemia adjacent to the described residual coccyx extending to the adjacent skin surface. No drainable fluid collection. IMPRESSION: 1. Findings which could reflect subtle acute/active osteomyelitis along the margin of the residual coccyx. These findings could reflect acute on chronic changes. 2. No soft tissue abscess. Signed by: Dr. Gil Wright D.O., M.M.M. on 12/26/2017 10:37 AM Dictated By: GIL WRIGHT DO 1037 Transcribed By: JANE on 12/26/17 1037 COPY TO: AZRA EVANS MD LUMBAR 3 VIEW [place] [address] Patient Name: CARLOS RUSSELL MR #: [id number] : 1950 Age/Sex: 67/F Req #: [id number] Adm Physician: Ordered by: ARZA EVANS MD Report #: [id number] Location: [facility] Room/Bed: Procedure: [id number] DX/LUMBAR 3 VIEW Exam Date: 09/13/17 Exam Time: 1145 REPORT STATUS: Signed PROCEDURE: L-SPINE 3V COMPARISON: None. INDICATIONS: SORE ON SACRUM, PRESSURE SORE, OSTEOMYELTITS FINDINGS: Lumbar spine demonstrates mild rotoscoliosis centered at L4 vertebral body. Mild wedge compression deformity of L2 vertebral body. Mild multilevel disc space narrowing especially at L3-L4. The paraspinal soft tissues are normal. Severe vascular calcifications. CONCLUSION: Mild to moderate diffuse degenerative changes in the lumbar spine. Mild wedge compression deformity of L2 vertebral body. Dictated by: Jaqueline Gallegos M.D. on 09/13/2017 at 13:36 Electronically approved by: Jaqueline Gallegos M.D. on 09/13/2017 at 13:36 Dictated By: JAQUELINE GALLEGOS MD 1336 Transcribed By: LINNETTE on 09/13/171335 COPY TO: AZRA EVANS MD SACRUM COCCYX [facility] [address] [place] [address] Patient Name: CARLOS RUSSELL MR #: [id number] : 1950 Age/Sex: 67/F Req #: [id number] Adm Physician: Ordered by: AZRA EVANS MD Report #: [id number] Location: [facility] Room/Bed: Procedure: [id number] DX/SACRUM COCCYX Exam Date: 09/13/17 Exam Time: 1145 REPORT STATUS: Signed PROCEDURE: SACRUM T COCCYX TECHNIQUE: 2 views of the sacrum INDICATION: Sacral decubitus ulcer. COMPARISON: None. FINDINGS: Moderate degenerative changes in both SI joints. No periosteal reaction is identified to suggest osteomyelitis. CONCLUSION: No evidence of osteomyelitis. Dictated by: Jaqueline Gallegos M.D. on 09/13/2017 at 13:37 Electronically approved by: Jaqueline Gallegos M.D. on 09/13/2017 at 13:37 Dictated By: JAQUELINE GALLEGOS MD 36 Transcribed By: LINNETTE on 09/13/171336 COPY TO: AZRA EVANS MD CHEST SINGLE (PORTABLE) [facility] [address] [place] [address] Patient Name: CARLOS RUSSELL MR #: [id number] : 1950 Age/Sex: 67/F Req #: [id number] Adm Physician: Ordered by: PB LOTT MD Report #: [id number] Location: ER Room/Bed: Procedure: [id number] DX/CHEST SINGLE (PORTABLE) Exam Date: 08/01/17 Exam Time: 1700 REPORT STATUS: Signed PROCEDURE: A single AP view of the chest. COMPARISON: Chest radiograph 09/20/2016. INDICATIONS: SORE ON BOTTOM FOR 3 DAYS FINDINGS: Lines/tubes: None. Lungs: The lungs are well inflated and clear. There is no evidence of pneumonia or pulmonary edema. Pleura: There is no pleural effusion or pneumothorax. Heart and mediastinum: Tortuous calcified aorta. The heart and the mediastinum are otherwise unremarkable. Bones: Mild degenerative changes of the spine. Rotator cuff calcific tendinosis. IMPRESSION: No acute cardiopulmonary disease. Dictated by: Heath Kennedy M.D. on 08/01/2017 at 17:35 Electronically approved by: Heath Kennedy M.D. on 08/01/2017 at 17:35 Dictated By: HEATH KENNEDY MD 173 Transcribed By: LINNETTE on 08/01/17 173 COPY TO: PB LOTT MD
--- OUTSIDE RECORDS SUMMARY | 2018-06-26 12:53 | XMS REPORT | Summary of Care ---
Author Author [facility] [place] Organization [facility] [place] Address Unknown Phone Unavailable Encounter HQ Sergei_edilson(FIN) [id number] Date(s): 01/13/17 - 01/13/17 [facility] [place] [address] [place] [phone] Discharge Disposition: Home or Self Care Attending Physician: Paul Petty MD Vital Signs No data [...]
--- OUTSIDE RECORDS SUMMARY | 2018-06-26 12:53 | XMS REPORT | Continuity of Care Document ---
Author Author [facility] Interface Address Unknown Phone Unavailable Problems Problem Status Onset Date Classification Date Reported Comments Source OSTEOMYELITIS Active 03/23/2018 [facility] Z78.0 - ASYMPTOMATIC MENOPAUSAL STATE Active 11/23/2016 [facility] [place] UNK Active 07/17/2014 [facility] 787.20 Active 07/17/2014 [facility] CA - Breast cancer<sup>1</sup> Active Problem 01/16/2017 bilateral breast BRAC 2+, [facility] [place],[facility] DM - Diabetes mellitus Active Problem 01/16/2017 [facility] [place] Effect of radiation therapy Resolved Problem 01/16/2017 [facility] [place] Effects of chemotherapy Resolved Problem 01/16/2017 [facility] [place] HTN - Hypertension Active Problem 01/16/2017 [facility] [place] DYSPHAGIA NOS Active [facility] OSTEOMYELITIS OF VERTEBRA, SACRAL AND SA Active [facility] Medications Medication Details Route Status Patient Instructions Ordering Provider Order Date Source Sodium Chloride 0.154 MEQ/ML Injectable Solution 500 mL, Rate: 25 ml/hr, Infuse over: 20 hr, Route: IV, Dosing Weight 115.455 kg, Total Volume: 500, Start date: 07/28/14 7:11:00, Duration: 30 day, Stop date: 08/27/14 7:10:00 Inactive 07/28/2014 [facility] gabapentin 300 MG Oral Capsule 300 mg=1 cap, PO, TID, # 90 cap, 0 Refill(s) Active 07/24/2014 [facility] anastrozole 1 MG Oral Tablet [Arimidex] 1 mg=1 tab, PO, Daily, # 30 tab, 0 Refill(s) Active 07/24/2014 [facility] 3 ML insulin detemir 100 UNT/ML Prefilled Syringe [Levemir] 15 unit am and 30 units pm subcutaneous injection, 0 Refill(s)Special Instructions: 15 unit am and 30 units pm subcutaneous injection Active 07/24/2014 [facility] lisinopril 10 mg oral tablet 10 mg=1 tab, PO, Daily, # 30 tab, 0 Refill(s) Active 07/24/2014 [facility] Allergies, Adverse Reactions, Alerts Substance Category Reaction Severity Reaction type Status Date Reported Comments Source Immunizations Immunization Date Given Site Status Last Updated Comments Source Results Order Name Results Value Reference Range Date Interpretation Comments Source CVC insert tunnel w/-w/o port/pump age 5+ yrs VR CVC insert tunnel w/-w/o port/pump age 5+ yrs VR TUNNELED CENTRAL LINE PLACEMENT: HISTORY: Sacral osteomyelitis, intermediate term central venous access needed for antibiotics (4 weeks of vancomycin). PROCEDURE: The procedure was done in the Speaking Unit Assembler using fluoroscopy and ultrasound. The fluoroscopic time was 0.3 minutes (5.79 mg). Preliminary ultrasound showed a patent and compressible right internal jugular vein. Spot imaging of the ultrasound guidance was done. Moderate Sedation was administered by the Interventional Radiology Nurse per ASA guidelines under my direct supervision (2 mg Versed/100 mcg fentanyl over 23 minutes). Using maximum barrier sterile Seldinger technique, local anesthetic and ultrasound guidance, the right internal jugular vein above the clavicle was accessed with a micropuncture set. A 0.038 measuring wire was then placed into the inferior vena cava. A subcutaneous tunnel was then created from the right subclavicular region to the access site, through which a 6-Cuban dual-lumen cuffed central line was pulled through and the cuff positioned in the proximal tract. The catheter was then trimmed to an appropriate length. The micropuncture sheath was exchanged for a peel-away sheath through which the central line was placed and the sheath removed. The catheter tip was in good position at the cavoatrial junction. Both ports were then aspirated with good blood return, then flushed and capped. A 2-0 nylon [id number] pursestring suture was placed around the catheter exit site. The access site in the neck was closed with Dermabond. The catheter hub was then fastened to the skin with a StatLock device. The patient tolerated the procedure well without immediate complications, and was discharged from [facility] in stable condition. [id number] 03/26/2018 - - Read by: Jim Monsivais MD Dictated Date/time: 03/26/18 10:40 Electronically Signed by: Jim Monsivais MD 03/26/18 10:48 FINAL REPORT [facility] Bone Density DXA [employer] MA Bone Density DXA [employer] MA - Bone Density DXA [employer] MA BONE DENSITY EVALUATION: 01/13/2017 CLINICAL DATA: Post menopausal. RISK FACTORS: race. FINDINGS: Bone density evaluation was performed 01/13/2017 on the AP L1-L2 region of spine using a Hologic unit. The BMD average for the exam is 0.791 g/cm2. The T-score is -1.70 and the Z-score is 0.10. This matches the World Health Organization's criteria for osteopenia and places the patient at a medium risk for fracture. An additional bone density evaluation was performed 01/13/2017 on the right femur neck using a Hologic unit. The BMD average for the exam is 0.592 g/cm2. The T-score is -2.30 and the Z-score is -0.70. This matches the World Health Organization's criteria for osteopenia and places the patient at a medium risk for fracture. An additional bone density evaluation was performed 01/13/2017 on the right hip using a Hologic unit. The BMD average for the exam is 0.611 g/cm2. The T-score is -2.70 and the Z-score is -1.30. This matches the World Health Organization's criteria for osteoporosis and places the patient at a high risk for fracture. An additional bone density evaluation was performed 01/13/2017 on the left femur neck using a Hologic unit. The BMD average for the exam is 0.540 g/cm2. The T- score is -2.80 and the Z-score is -1.10. This matches the World Health Organization's criteria for osteoporosis and places the patient at a high risk for fracture. An additional bone density evaluation was performed 01/13/2017 on the left hip using a Hologic unit. The BMD average for the exam is 0.602 g/cm2. The T-score is -2.80 and the Z-score is -1.40. This matches the World Health Organization's criteria for osteoporosis and places the patient at a high risk for fracture. IMPRESSION: OSTEOPOROSIS Patient is at high risk for fracture. Professional services are provided by the [facility]. This exam was dictated and interpreted by [id number] for LEYLA Fuentes 15. Sheldon Christianson M.D., cm/gordon:01/13/2017 11:35:49 Research Assistant: Laura MORRIS (R)), [facility] 01/13/2017 - - Read by: Srikanth Dixon MD Dictated Date/time: 01/13/17 11:35 Electronically Signed by: Srikanth Dixon MD 01/13/17 11:35 FINAL REPORT [facility] CHEM PANEL eGFR 78 mL/min/1.73m2 07/28/2014 1Result Comment: The eGFR is calculated using [...] from the National Kidney Disease Education Program (NKDEP) which additionally recommends that when the eGFR is used in patients with extremes of body mass index for purposes of drug dosing, the eGFR should be multiplied by the estimated BMI. [facility] CHEM PANEL Chloride Lvl 105 meq/L 95 - 109 07/28/2014 [facility] CHEM PANEL Creatinine Lvl 0.8 mg/dL 0.5 - 1.4 07/28/2014 [facility] CHEM PANEL CO2 27 meq/L 24 - 32 07/28/2014 [facility] CHEM PANEL Sodium Lvl 139 meq/L 135 - 145 07/28/2014 [facility] CHEM PANEL Potassium Lvl 3.9 meq/L 3.5 - 5.1 07/28/2014 [facility] CHEM PANEL BUN 20 mg/dL 7 - 22 07/28/2014 [facility] CHEM PANEL AGAP 10.9 meq/L 10.0 - 20.0 07/28/2014 [facility] CHEM PANEL Calcium Lvl 9.0 mg/dL 8.5 - 10.5 07/28/2014 [facility] CHEM PANEL Glucose Lvl 131 mg/dL 70 - 99 07/28/2014 2Interpretive Data: Adult reference range values reflect the clinical guidelines of the [place] [employer]. [facility] Vital Signs Vital Sign Value Date Comments Source Diastolic (mm Hg) 67 07/28/2014 [facility] Systolic (mm Hg) 144 07/28/2014 [facility] Respitory Rate 18 07/28/2014 [facility] Diastolic (mm Hg) 53 07/28/2014 [facility] Systolic (mm Hg) 115 07/28/2014 [facility] Respitory Rate 18 07/28/2014 [facility] Respitory Rate 18 07/28/2014 [facility] Diastolic (mm Hg) 39 07/28/2014 [facility] Systolic (mm Hg) 97 07/28/2014 [facility] Height 167.64 cm 07/24/2014 [facility] Weight 115.455 07/24/2014 [facility] BMI Calculated 41.08 07/24/2014 [facility] Temperature Oral (F) 98.1 F 07/24/2014 [facility] Heart Rate 69 07/24/2014 [facility] Height 167.64 cm 07/24/2014 [facility] BMI Calculated 41.08 07/24/2014 [facility] Weight 115.455 07/24/2014 [facility] Encounters Location Location Details Encounter Type Encounter Number Reason For Visit Attending Provider ADM Date DC Date Status Source [facility] Bedded Outpatient [id number] Abhishek Alonzo 07/28/2014 07/28/2014 [facility] [place] [facility] [id number] Paul Petty 01/09/2015 01/10/2015 [facility] [place] [facility] [place] [facility] [id number] Paul Petty 01/13/2017 01/14/2017 [facility] [place] Procedures Procedure Code Date Perfomer Comments Source
== END | disposition home or self-care (01) ==
LOC: OR 05:43
PROVIDERS: ATTEND Plastic Surgery
DX: L89.154 Pressure ulcer of sacral region, stage 4 (principal); E11.9 Type 2 diabetes mellitus without complications; I10 Essential (primary) hypertension; G62.9 Polyneuropathy, unspecified; E66.01 Morbid (severe) obesity due to excess calories; Z01.810 Encounter for preprocedural cardiovascular examination; Z01.812 Encounter for preprocedural laboratory examination; Z01.818 Encounter for other preprocedural examination; Z79.84 Long term (current) use of oral hypoglycemic drugs; Z85.3 Personal history of malignant neoplasm of breast
CPT/HCPCS: 15734; 36415 ×2; 71046; 80048; 82948; 85025; 93005; 97606; J0690; J1100; J2001; J2250; J2405; J3490

== ENCOUNTER 2018-07-09 13:37 | Outpatient (RCR) | payer MEDICARE, OTHER ==
[~2018-07-09 13:37] MED LIST changes: -BACITRACIN 50,000 UNIT VIAL ONE; -CEFAZOLIN SOD 1 GM VIAL ONE; -DEXAMETHASONE SOD PHOS INJ 4 MG/ML VIAL ONE; -EPHEDRINE SULFATE INJ 50 MG/10 ML SYR ONE; -FENTANYL CITRATE/PF 100MCG/2 ML INJ ONE; -GLYCOPYRROLATE INJ 1MG/ 5 ML SYR ONE; -LIDOCAINE HCL 2% LOCAL INJ 5 ML SDV VIAL INJ ONE; -MIDAZOLAM HCL 2 MG/2 ML VIAL ONE; +MUPIROCIN 2% OINT 22 GM TUBE ONE; -NEOSTIGMINE 5 MG/5ML SYR ONE; -ONDANSETRON HCL INJ 2 MG/ML VIAL ONE; -PROPOFOL IV EMULSION 10 MG/ML 20 ML VIAL ONE; -SEVOFLURANE INHAL SOLN 250 ML PEN BTL ONE
[2018-07-09] MEDS ORDERED: MUPIROCIN 2% OINT 22 GM TUBE ONE (16:36)
== END 2018-07-11 ==
LOC: WCC 13:37
PROVIDERS: ATTEND Plastic Surgery
DX: E11.9 Type 2 diabetes mellitus without complications (principal); M86.68 Other chronic osteomyelitis, other site; L89.153 Pressure ulcer of sacral region, stage 3; I10 Essential (primary) hypertension; G90.09 Other idiopathic peripheral autonomic neuropathy; Z74.01 Bed confinement status

== ENCOUNTER 2018-07-30 12:02 | Outpatient (RCR) | payer MEDICARE, OTHER | END 2018-08-10 | LOC: WCC 12:02 | PROVIDERS: ATTEND Plastic Surgery | DX: T81.89XA Other complications of procedures, not elsewhere classified, initial encounter (principal); E11.9 Type 2 diabetes mellitus without complications; G90.09 Other idiopathic peripheral autonomic neuropathy; I10 Essential (primary) hypertension; Z74.01 Bed confinement status ==

== ENCOUNTER 2021-05-13 10:02 | Inpatient (IN) | payer OTHER, MEDICARE ==
[2021-05-11 13:17] LABS: BASOPHILS % 0.6 % (0.0-1.0); EOSINOPHILS # (AUTO) 0.1 (0.0-0.4); EOSINOPHILS % 1.4 % (0.0-6.0); HEMATOCRIT 34.3 % (34.2-44.1); HEMOGLOBIN 10.6 g/dL (12.0-16.0); LYMPHOCYTES # (AUTO) 1.5 (1.0-3.2); LYMPHOCYTES % 23.4 % (18.0-39.1); MEAN CORPUSCULAR HEMOGLOBIN 27.5 pg (28-32); MEAN CORPUSCULAR HGB CONC 30.9 g/dL (31-35); MEAN CORPUSCULAR VOLUME 89.1 fL (81-99); MONOCYTES # (AUTO) 0.5 (0.2-0.8); MONOCYTES % 7.4 % (4.4-11.3); NEUTROPHILS # (AUTO) 4.3 (2.1-6.9); NEUTROPHILS % 66.7 % (38.7-80.0); PLATELET COUNT 186 x10e3/uL (140-360); RED BLOOD COUNT 3.85 x10e6/uL (3.6-5.1); RED CELL DISTRIBUTION WIDTH 13.4 % (11.7-14.4)
[2021-05-11 13:44] LABS: ALBUMIN 3.6 g/dL (3.5-5.0); ALBUMIN/GLOBULIN RATIO 1.1 (0.8-2.0); CREATININE, SERUM 1.34 mg/dL (0.57-1.11)
[2021-05-11 13:46] LABS: PROTHROMBIN TIME 13.4 seconds (11.9-14.5)
[2021-05-13] VITALS (7 sets, daily range): BP systolic 78–155; BP diastolic 26–77
[~2021-05-13] VITALS: Ht 167.6 cm; Wt 116.6 kg
[~2021-05-13 10:02] MED LIST changes: +CEPHALEXIN500 MG PO; +LANTUS 3ML100 UNITS/; -MUPIROCIN 2% OINT 22 GM TUBE ONE; +ULTRAM50 MG PO
[2021-05-13] MEDS ORDERED: LIDOCAINE HCL 2% LOCAL 20 ML VIAL ONE ×2 (12:59→14:38)
[2021-05-13] MEDS ORDERED: MIDAZOLAM HCL 2 MG/2 ML VIAL ONE ×5 (12:59→15:22)
[2021-05-13] MEDS ORDERED: FENTANYL CITRATE/PF 100MCG/2 ML INJ ONE ×4 (12:59→19:24)
[2021-05-13] MEDS ORDERED: SODIUM CHLORIDE 0.9% 1000ML 1,000 ML ONE ×3 (13:00→20:43)
[2021-05-13] MEDS ORDERED: IOPAMIDOL 300MG/ML 100 ML INFUS..BTL IV ONE ×2 (13:00→17:16)
[2021-05-13] MEDS ORDERED: HEPARIN SOD/SOD CHLORIDE 2,000 ML ONE (13:00)
[2021-05-13] MEDS ORDERED: SUCCINYLCHOLINE CHLORIDE 20 MG/ML 10ML VIAL ONE (13:46)
[2021-05-13] MEDS ORDERED: POVIDONE IODINE 0.05% 0.05 % ML PO ONE (13:46)
[2021-05-13] MEDS ORDERED: ETOMIDATE 2 MG/ML 10 ML INJ IV ONE (13:46)
[2021-05-13] MEDS ORDERED: ONDANSETRON HCL INJ 2MG/ML 2ML 2 MG/ML VIAL ONE (13:46)
[2021-05-13] MEDS ORDERED: SEVOFLURANE INHAL SOLN 250 ML PEN BTL ONE (13:46)
[2021-05-13] MEDS ORDERED: HEPARIN SOD/SOD CHLORIDE 1,000 ML ONE (13:59)
[2021-05-13] MEDS ORDERED: DIPHENHYDRAMINE HCL INJ 50 MG/ML VIAL ONE (14:01)
[2021-05-13] MEDS ORDERED: SODIUM CHLORIDE 0.9% 250ML 250 ML IV ONE ×2 (15:45→16:00)
[2021-05-13] MEDS ORDERED: NOREPINEPHRINE 8 MG/D5W 250 ML 250 ML ONE (15:49)
[2021-05-13 15:56] LABS: BASOPHILS # (AUTO) 0.1 (0.0-0.1); BASOPHILS % 0.7 % (0.0-1.0); EOSINOPHILS # (AUTO) 0.1 (0.0-0.4); EOSINOPHILS % 1.5 % (0.0-6.0); HEMATOCRIT 28.5 % (34.2-44.1); HEMOGLOBIN 9.2 g/dL (12.0-16.0); LYMPHOCYTES # (AUTO) 1.9 (1.0-3.2); LYMPHOCYTES % 25.1 % (18.0-39.1); MEAN CORPUSCULAR HGB CONC 32.3 g/dL (31-35); MEAN CORPUSCULAR VOLUME 86.6 fL (81-99); MONOCYTES # (AUTO) 0.5 (0.2-0.8); MONOCYTES % 6.8 % (4.4-11.3); NEUTROPHILS # (AUTO) 4.9 (2.1-6.9); NEUTROPHILS % 65.4 % (38.7-80.0); PLATELET COUNT 201 x10e3/uL (140-360); RED BLOOD COUNT 3.29 x10e6/uL (3.6-5.1); RED CELL DISTRIBUTION WIDTH 13.3 % (11.7-14.4)
[2021-05-13 16:09] LABS: INR 1.3; PROTHROMBIN TIME 16.4 seconds (11.9-14.5)
[2021-05-13 16:16] LABS: ANION GAP 12.5 mmol/L (8-16); CALCIUM 7.9 mg/dL (8.4-10.2); CREATININE, SERUM 0.94 mg/dL (0.57-1.11); POTASSIUM 4.5 mmol/L (3.5-5.1)
[2021-05-13] MEDS ORDERED: IOPAMIDOL 300MG/ML 50ML INFUS..BTL IV ONE (16:58)
[2021-05-13 18:04] LABS: BASOPHILS # (AUTO) 0.1 (0.0-0.1); BASOPHILS % 0.6 % (0.0-1.0); EOSINOPHILS # (AUTO) 0.1 (0.0-0.4); EOSINOPHILS % 0.6 % (0.0-6.0); HEMOGLOBIN 11.8 g/dL (12.0-16.0); LYMPHOCYTES # (AUTO) 1.8 (1.0-3.2); LYMPHOCYTES % 15.4 % (18.0-39.1); MEAN CORPUSCULAR HGB CONC 32.8 g/dL (31-35); MEAN CORPUSCULAR VOLUME 88.5 fL (81-99); MONOCYTES # (AUTO) 0.6 (0.2-0.8); MONOCYTES % 4.8 % (4.4-11.3); NEUTROPHILS % 77.8 % (38.7-80.0); PLATELET COUNT 164 x10e3/uL (140-360); RED BLOOD COUNT 4.07 x10e6/uL (3.6-5.1); RED CELL DISTRIBUTION WIDTH 13.8 % (11.7-14.4)
[2021-05-13 18:19] LABS: ANION GAP 15.5 mmol/L (8-16); CALCIUM 7.6 mg/dL (8.4-10.2); CREATININE, SERUM 1.09 mg/dL (0.57-1.11); POTASSIUM 4.5 mmol/L (3.5-5.1)
[2021-05-13] MEDS ORDERED: ONDANSETRON HCL INJ 2MG/ML 2ML 2 MG/ML VIAL IV PRN ×2 (18:45→19:15)
[2021-05-13] MEDS ORDERED: ACETAMINOPHEN 1000 MG/100 ML IV PRN (19:15)
[2021-05-13] MEDS ORDERED: MORPHINE SULFATE INJ 2 MG/ML SYR ONE (19:50)
[2021-05-13] MEDS: SODIUM CHLORIDE 0.9% 1000ML 1,000 ML IV SCH (20:30)
[2021-05-13] MEDS: MORPHINE SULFATE INJ 4 MG/ML INJ 1ML IV PRN ×2 (20:47→23:40)
[2021-05-13] MEDS ORDERED: MORPHINE SULFATE INJ 4 MG/ML INJ 1ML ONE (20:57)
[2021-05-13] MEDS: Cefazolin 1 GM in SODIUM CHLORIDE 0.9% 50ML 50 ML IV SCH (23:55)
[2021-05-14] VITALS (22 sets, daily range): BP systolic 95–137; BP diastolic 44–68
[2021-05-14] MEDS: INSULIN REGULAR, HUMAN 100 UNIT/1 ML SQ SCH ×4 (00:09→17:07)
[2021-05-14] MEDS: HYDROMORPHONE 1MG/1ML INJ IV PRN ×4 (03:15→15:55)
[2021-05-14] MEDS ORDERED: METOPROLOL TARTRATE INJ 1 MG/ML VIAL IV PRN (04:15)
[2021-05-14 05:25] LABS: BASOPHILS # (AUTO) 0.1 (0.0-0.1); BASOPHILS % 0.4 % (0.0-1.0); EOSINOPHILS % 0.1 % (0.0-6.0); HEMATOCRIT 31.5 % (34.2-44.1); HEMOGLOBIN 10.4 g/dL (12.0-16.0); LYMPHOCYTES # (AUTO) 1.3 (1.0-3.2); LYMPHOCYTES % 9.8 % (18.0-39.1); MEAN CORPUSCULAR HEMOGLOBIN 28.5 pg (28-32); MEAN CORPUSCULAR VOLUME 86.3 fL (81-99); MONOCYTES # (AUTO) 1.3 (0.2-0.8); MONOCYTES % 9.5 % (4.4-11.3); NEUTROPHILS # (AUTO) 10.9 (2.1-6.9); NEUTROPHILS % 79.6 % (38.7-80.0); PLATELET COUNT 168 x10e3/uL (140-360); RED BLOOD COUNT 3.65 x10e6/uL (3.6-5.1); RED CELL DISTRIBUTION WIDTH 14.3 % (11.7-14.4)
[2021-05-14 05:36] LABS: INR 1.18; PROTHROMBIN TIME 15.2 seconds (11.9-14.5)
[2021-05-14 05:37] LABS: PARTIAL THROMBOPLASTIN TIME 36.3 seconds (23.8-35.5)
[2021-05-14] MEDS: Cefazolin 1 GM in SODIUM CHLORIDE 0.9% 50ML 50 ML IV SCH ×3 (05:59→17:07)
[2021-05-14] MEDS: SODIUM CHLORIDE 0.9% 1000ML 1,000 ML IV SCH ×2 (06:26→16:42)
[2021-05-14] MEDS: METOPROLOL TARTRATE 25 MG TAB PO SCH ×2 (08:05→15:54)
[2021-05-14] MEDS: GABAPENTIN 100 MG CAP PO SCH ×3 (08:06→21:00)
[2021-05-14] MEDS ORDERED: HYDROMORPHONE 1MG/1ML INJ IV ONE (11:15)
[2021-05-14] MEDS ORDERED: ATROPINE SULFATE 0.1 MG/ML 10ML SYR ONE (11:44)
[2021-05-14 12:48] LABS: ALBUMIN 2.7 g/dL (3.5-5.0); ANION GAP 15.1 mmol/L (8-16); CALCIUM 7.8 mg/dL (8.4-10.2); CREATININE, SERUM 1.21 mg/dL (0.57-1.11); POTASSIUM 5.1 mmol/L (3.5-5.1)
[2021-05-14] MEDS: MUPIROCIN 2% OINT 22 GM TUBE TOP SCH (15:55)
[2021-05-14] MEDS: HEPARIN 25,000 UNIT 1,500 UNIT in DEXTROSE 5% 250ML 250 ML IV SCH (17:45)
[2021-05-14] MEDS: MORPHINE SULFATE INJ 4 MG/ML INJ 1ML IV PRN (20:00)
[2021-05-15] VITALS (13 sets, daily range): BP systolic 90–116; BP diastolic 39–74
[2021-05-15 00:07] LABS: INR 1.23; PROTHROMBIN TIME 15.8 seconds (11.9-14.5)
[2021-05-15] MEDS: HYDROMORPHONE 1MG/1ML INJ IV PRN ×3 (01:30→23:00)
[2021-05-15] MEDS: SODIUM CHLORIDE 0.9% 1000ML 1,000 ML IV SCH ×3 (02:13→17:43)
[2021-05-15] MEDS: Cefazolin 1 GM in SODIUM CHLORIDE 0.9% 50ML 50 ML IV SCH ×6 (06:00→23:31)
[2021-05-15] MEDS: INSULIN REGULAR, HUMAN 100 UNIT/1 ML SQ SCH ×4 (06:00→17:44)
[2021-05-15 06:47] LABS: BASOPHILS # (AUTO) 0.1 (0.0-0.1); BASOPHILS % 0.6 % (0.0-1.0); EOSINOPHILS # (AUTO) 0.1 (0.0-0.4); EOSINOPHILS % 0.7 % (0.0-6.0); HEMOGLOBIN 8.7 g/dL (12.0-16.0); LYMPHOCYTES # (AUTO) 1.5 (1.0-3.2); LYMPHOCYTES % 12.2 % (18.0-39.1); MEAN CORPUSCULAR HEMOGLOBIN 28.7 pg (28-32); MEAN CORPUSCULAR HGB CONC 32.2 g/dL (31-35); MEAN CORPUSCULAR VOLUME 89.1 fL (81-99); MONOCYTES # (AUTO) 1.2 (0.2-0.8); MONOCYTES % 9.3 % (4.4-11.3); NEUTROPHILS # (AUTO) 9.5 (2.1-6.9); NEUTROPHILS % 76.4 % (38.7-80.0); PLATELET COUNT 147 x10e3/uL (140-360); RED BLOOD COUNT 3.03 x10e6/uL (3.6-5.1); RED CELL DISTRIBUTION WIDTH 14.8 % (11.7-14.4)
[2021-05-15 07:43] LABS: ALBUMIN 2.6 g/dL (3.5-5.0); ANION GAP 13.6 mmol/L (8-16); CALCIUM 7.5 mg/dL (8.4-10.2); CREATININE, SERUM 1.27 mg/dL (0.57-1.11); POTASSIUM 4.6 mmol/L (3.5-5.1)
[2021-05-15] MEDS: MUPIROCIN 2% OINT 22 GM TUBE TOP SCH ×2 (08:41→16:10)
[2021-05-15] MEDS: METOPROLOL TARTRATE 25 MG TAB PO SCH ×2 (08:44→16:10)
[2021-05-15] MEDS: GABAPENTIN 100 MG CAP PO SCH ×3 (08:58→21:13)
[2021-05-15] MEDS: HYDROCODONE/APAP 7.5MG-325MG 1 EA TAB PO PRN ×2 (10:15→22:23)
[2021-05-15] MEDS: HEPARIN 25,000 UNIT 1,500 UNIT in DEXTROSE 5% 250ML 250 ML IV SCH (11:06)
[2021-05-15] MEDS ORDERED: LORAZEPAM INJ 2 MG/ML VIAL IV ONE (14:30)
[2021-05-15] MEDS: MORPHINE SULFATE INJ 4 MG/ML INJ 1ML IV PRN ×2 (14:36→14:47)
[2021-05-15] MEDS ORDERED: HEPARIN SOD (PORCINE) 1000 UNIT/ML 30ML ONE (14:59)
[2021-05-15] MEDS ORDERED: MIDAZOLAM HCL 2 MG/2 ML VIAL ONE ×2 (14:59→16:19)
[2021-05-15] MEDS ORDERED: FENTANYL CITRATE/PF 100MCG/2 ML INJ ONE (15:00)
[2021-05-15] MEDS ORDERED: LIDOCAINE HCL 2% LOCAL 20 ML VIAL ONE (15:00)
[2021-05-15] MEDS ORDERED: HEPARIN SOD/SOD CHLORIDE 2,000 ML ONE (15:00)
[2021-05-15] MEDS ORDERED: NITROGLYCERIN/D5W 200 MCG/ML 250 ML ONE (15:01)
[2021-05-15] MEDS ORDERED: SODIUM CHLORIDE 0.9% 1000ML 1,000 ML ONE ×2 (15:01→16:42)
[2021-05-15] MEDS ORDERED: IOPAMIDOL 300MG/ML 100 ML INFUS..BTL IV ONE (15:02)
[2021-05-15] MEDS ORDERED: ALTEPLASE RECOMBINANT 8 MG in DEXTROSE 5% 250ML 250 ML IV PRN (16:15)
[2021-05-15] MEDS ORDERED: ALTEPLASE RECOMBINANT 2 MG/2 ML VIAL ONE (16:26)
[2021-05-15] MEDS: ATORVASTATIN 20 MG TAB PO SCH (21:12)
[2021-05-16] VITALS (35 sets, daily range): BP systolic 76–110; BP diastolic 35–76
[2021-05-16] MEDS: ALTEPLASE RECOMBINANT 8 MG in DEXTROSE 5% 250ML 250 ML IV SCH ×3 (00:30→16:30)
[2021-05-16] MEDS: HYDROCODONE/APAP 7.5MG-325MG 1 EA TAB PO PRN ×5 (03:16→23:59)
[2021-05-16] MEDS: INSULIN REGULAR, HUMAN 100 UNIT/1 ML SQ SCH ×4 (03:23→18:58)
[2021-05-16 05:31] LABS: BASOPHILS # (AUTO) 0.1 (0.0-0.1); BASOPHILS % 0.3 % (0.0-1.0); EOSINOPHILS % 0.1 % (0.0-6.0); HEMATOCRIT 25.1 % (34.2-44.1); LYMPHOCYTES # (AUTO) 1.3 (1.0-3.2); LYMPHOCYTES % 8.7 % (18.0-39.1); MEAN CORPUSCULAR HEMOGLOBIN 28.7 pg (28-32); MEAN CORPUSCULAR HGB CONC 31.9 g/dL (31-35); MONOCYTES # (AUTO) 1.2 (0.2-0.8); MONOCYTES % 8.4 % (4.4-11.3); NEUTROPHILS # (AUTO) 11.9 (2.1-6.9); NEUTROPHILS % 81.2 % (38.7-80.0); PLATELET COUNT 140 x10e3/uL (140-360); RED BLOOD COUNT 2.79 x10e6/uL (3.6-5.1)
[2021-05-16 05:44] LABS: ALBUMIN 2.4 g/dL (3.5-5.0); ALBUMIN/GLOBULIN RATIO 0.9 (0.8-2.0); ANION GAP 15.2 mmol/L (8-16); CALCIUM 7.3 mg/dL (8.4-10.2); CREATININE, SERUM 1.34 mg/dL (0.57-1.11); POTASSIUM 5.2 mmol/L (3.5-5.1)
[2021-05-16] MEDS: Cefazolin 1 GM in SODIUM CHLORIDE 0.9% 50ML 50 ML IV SCH ×3 (06:00→17:31)
[2021-05-16] MEDS: SODIUM CHLORIDE 0.9% 1000ML 1,000 ML IV SCH ×2 (08:22→17:30)
[2021-05-16] MEDS: ASPIRIN 81 MG CHEW TAB PO SCH (08:22)
[2021-05-16] MEDS: METOPROLOL TARTRATE 25 MG TAB PO SCH ×2 (08:23→17:00)
[2021-05-16] MEDS: GABAPENTIN 100 MG CAP PO SCH ×3 (08:23→22:00)
[2021-05-16] MEDS: MUPIROCIN 2% OINT 22 GM TUBE TOP SCH ×2 (08:24→17:31)
[2021-05-16] MEDS: CLOPIDOGREL BISULFATE 75 MG TAB PO SCH (08:50)
[2021-05-16] MEDS: HYDROMORPHONE 1MG/1ML INJ IV PRN (08:51)
[2021-05-16] MEDS ORDERED: METOPROLOL TARTRATE 25 MG TAB PO SCH (09:00)
[2021-05-16] MEDS ORDERED: SODIUM CHLORIDE 0.9% 1000ML 1,000 ML ONE ×2 (13:09→13:43)
[2021-05-16] MEDS ORDERED: HEPARIN SOD (PORCINE) 1000 UNIT/ML 30ML ONE ×2 (13:09→13:42)
[2021-05-16] MEDS ORDERED: FENTANYL CITRATE/PF 100MCG/2 ML INJ ONE (13:42)
[2021-05-16] MEDS ORDERED: MIDAZOLAM HCL 2 MG/2 ML VIAL ONE ×2 (13:42→15:39)
[2021-05-16] MEDS ORDERED: IOPAMIDOL 300MG/ML 50ML INFUS..BTL IV ONE ×2 (13:43→14:45)
[2021-05-16] MEDS ORDERED: LIDOCAINE HCL 2% LOCAL 20 ML VIAL ONE (13:43)
[2021-05-16] MEDS ORDERED: HEPARIN SOD/SOD CHLORIDE 2,000 ML ONE (13:43)
[2021-05-16] MEDS ORDERED: NITROGLYCERIN/D5W 200 MCG/ML 250 ML ONE (13:44)
[2021-05-16] MEDS ORDERED: HEPARIN SOD/SOD CHLORIDE 1,000 ML ONE (14:45)
[2021-05-16] MEDS ORDERED: DIPHENHYDRAMINE HCL INJ 50 MG/ML VIAL ONE (14:54)
[2021-05-16] MEDS ORDERED: IOPAMIDOL 300MG/ML 100 ML INFUS..BTL IV ONE (15:05)
[2021-05-16] MEDS ORDERED: HEPARIN 25,000 UNIT 1,000 UNIT in DEXTROSE 5% 250ML 250 ML IV SCH (17:00)
[2021-05-16] MEDS: ATORVASTATIN 20 MG TAB PO SCH (22:00)
[2021-05-17] VITALS (19 sets, daily range): BP systolic 44–123; BP diastolic 24–88
[2021-05-17] MEDS: HYDROCODONE/APAP 7.5MG-325MG 1 EA TAB PO PRN
[2021-05-17] MEDS: Cefazolin 1 GM in SODIUM CHLORIDE 0.9% 50ML 50 ML IV SCH ×2 (00:30→05:34)
[2021-05-17] MEDS: ALTEPLASE RECOMBINANT 8 MG in DEXTROSE 5% 250ML 250 ML IV SCH ×2 (00:30→08:30)
[2021-05-17] MEDS: INSULIN REGULAR, HUMAN 100 UNIT/1 ML SQ SCH ×2 (01:20→05:22)
[2021-05-17] MEDS: HYDROMORPHONE 1MG/1ML INJ IV PRN (02:07)
[2021-05-17] MEDS: SODIUM CHLORIDE 0.9% 1000ML 1,000 ML IV SCH (05:17)
[2021-05-17] MEDS: ASPIRIN 81 MG CHEW TAB PO SCH (08:41)
[2021-05-17] MEDS: METOPROLOL TARTRATE 25 MG TAB PO SCH (08:41)
[2021-05-17] MEDS: GABAPENTIN 100 MG CAP PO SCH (08:42)
[2021-05-17] MEDS: MUPIROCIN 2% OINT 22 GM TUBE TOP SCH (08:42)
[2021-05-17] MEDS: CLOPIDOGREL BISULFATE 75 MG TAB PO SCH (08:42)
[2021-05-17] MEDS ORDERED: SODIUM CHLORIDE 0.9% 1000ML 1,000 ML ONE (11:56)
[2021-05-17 12:02] LABS: CREATINE KINASE MB 37.5 ng/mL (0-5.0)
[2021-05-17 12:12] LABS: BASOPHILS # (AUTO) 0.2 (0.0-0.1); BASOPHILS % 0.5 % (0.0-1.0); EOSINOPHILS # (AUTO) 0.1 (0.0-0.4); EOSINOPHILS % 0.2 % (0.0-6.0); HEMATOCRIT 26.1 % (34.2-44.1); HEMOGLOBIN 8.3 g/dL (12.0-16.0); LYMPHOCYTES # (AUTO) 9.5 (1.0-3.2); LYMPHOCYTES % 27.6 % (18.0-39.1); MEAN CORPUSCULAR HEMOGLOBIN 29.3 pg (28-32); MEAN CORPUSCULAR HGB CONC 31.8 g/dL (31-35); MEAN CORPUSCULAR VOLUME 92.2 fL (81-99); MONOCYTES # (AUTO) 2.9 (0.2-0.8); MONOCYTES % 8.5 % (4.4-11.3); NEUTROPHILS % 57.8 % (38.7-80.0); PLATELET COUNT 148 x10e3/uL (140-360); RED BLOOD COUNT 2.83 x10e6/uL (3.6-5.1); RED CELL DISTRIBUTION WIDTH 15.4 % (11.7-14.4)
[2021-05-17 12:29] LABS: INR 1.76; PROTHROMBIN TIME 20.8 seconds (11.9-14.5)
[2021-05-17 12:30] LABS: PARTIAL THROMBOPLASTIN TIME 43.2 seconds (23.8-35.5)
[2021-05-17 12:40] LABS: ALBUMIN 1.9 g/dL (3.5-5.0); ALBUMIN/GLOBULIN RATIO 0.8 (0.8-2.0); CREATININE, SERUM 1.89 mg/dL (0.57-1.11)
[2021-05-17 12:48] LABS: CALCIUM 6.8 mg/dL (8.4-10.2)
[2021-05-17 13:11] LABS: BAND NEUTROPHILS % (MANUAL) 2 %; EOSINOPHILS % (MANUAL) 1 % (0-7); LYMPHOCYTES % (MANUAL) 31 % (19-48); MONOCYTES % (MANUAL) 3 % (3.4-9.0); MYELOCYTES % (MANUAL) 1 % (0-0); NEUTROPHILS % (MANUAL) 62 % (40-74); NUCLEATED RED BLOOD CELLS 3
[2021-05-17 13:12] LABS: PLATELET ESTIMATE ADEQUATE; PLATELET MORPHOLOGY COMMENT FEW LARGE; POLYCHROMASIA FEW; RBC MORPHOLOGY COMMENT NORMAL
[2021-05-17] MEDS ORDERED: AMIODARONE HCL INJ 150MG/3ML ONE (13:15)
[2021-05-17] MEDS ORDERED: MIDAZOLAM HCL 2 MG/2 ML VIAL ONE (13:15)
[2021-05-17] MEDS ORDERED: SODIUM BICARBONATE 8.4% INJ 50 ML SYR ONE (13:15)
[2021-05-17] MEDS ORDERED: EPINEPHRINE HCL SYRINGE ONE ×2 (13:15→13:19)
[2021-05-17] MEDS ORDERED: ATROPINE SULFATE 0.1 MG/ML 10ML SYR ONE (13:15)
[2021-05-17] MEDS ORDERED: AMIODARONE 900MG 900 MG/500 ML BAG IV ONE (13:19)
[2021-05-17] MEDS ORDERED: DEXTROSE 5% 250 ML BAG IV ONE (13:19)
== END 2021-05-17 16:41 | disposition expired | DRG 252 ==
LOC: CATH LAB 10:02 → ICU 20:14 → MED/SURG2 05-14 17:39 → ICU 05-15 16:49
PROVIDERS: ADMIT Internal Medicine Cardiovascular Disease; ATTEND Internal Medicine Cardiovascular Disease
PROC: 04CK0ZZ Extirpation of Matter from Right Femoral Artery, Open Approach (ICD-10-PCS; 2021-05-13)
PROC: 30233N1 Transfusion of Nonautologous Red Blood Cells into Peripheral Vein, Percutaneous Approach (ICD-10-PCS; 2021-05-13)
PROC: 047D3Z1 Dilation of Left Common Iliac Artery using Drug-Coated Balloon, Percutaneous Approach (ICD-10-PCS; 2021-05-13)
PROC: 047K3ZZ Dilation of Right Femoral Artery, Percutaneous Approach (ICD-10-PCS; 2021-05-15)
PROC: B4101ZZ Fluoroscopy of Abdominal Aorta using Low Osmolar Contrast (ICD-10-PCS; 2021-05-15)
PROC: 3E06317 Introduction of Other Thrombolytic into Central Artery, Percutaneous Approach (ICD-10-PCS; 2021-05-15)
PROC: 047K3Z1 Dilation of Right Femoral Artery using Drug-Coated Balloon, Percutaneous Approach (ICD-10-PCS; 2021-05-16)
PROC: 047M3Z1 Dilation of Right Popliteal Artery using Drug-Coated Balloon, Percutaneous Approach (ICD-10-PCS; 2021-05-16)
PROC: 04FP3Z0 Fragmentation of Right Anterior Tibial Artery, Percutaneous Approach, Ultrasonic (ICD-10-PCS; 2021-05-16)
PROC: 04FM3Z0 Fragmentation of Right Popliteal Artery, Percutaneous Approach, Ultrasonic (ICD-10-PCS; 2021-05-16)
PROC: 04F Lower Arteries, Fragmentation (ICD-10-PCS; 2021-05-16)
PROC: 04FK3Z0 Fragmentation of Right Femoral Artery, Percutaneous Approach, Ultrasonic (ICD-10-PCS; 2021-05-16)
PROC: 5A1935Z Respiratory Ventilation, Less than 24 Consecutive Hours (ICD-10-PCS; principal; 2021-05-17)
PROC: 0BH17EZ Insertion of Endotracheal Airway into Trachea, Via Natural or Artificial Opening (ICD-10-PCS; 2021-05-17)
PROC: 5A12012 Performance of Cardiac Output, Single, Manual (ICD-10-PCS; 2021-05-17)
PROC: 5A2204Z Restoration of Cardiac Rhythm, Single (ICD-10-PCS; 2021-05-17)
DX: T82.518A Breakdown (mechanical) of other cardiac and vascular devices and implants, initial encounter (principal); I21.9 Acute myocardial infarction, unspecified; J96.00 Acute respiratory failure, unspecified whether with hypoxia or hypercapnia; I70.262 Atherosclerosis of native arteries of extremities with gangrene, left leg; D62 Acute posthemorrhagic anemia; E87.1 Hypo-osmolality and hyponatremia; Z68.41 Body mass index [BMI] 40.0-44.9, adult; E11.51 Type 2 diabetes mellitus with diabetic peripheral angiopathy without gangrene; I70.221 Atherosclerosis of native arteries of extremities with rest pain, right leg; Y83.8 Other surgical procedures as the cause of abnormal reaction of the patient, or of later complication, without mention of misadventure at the time of the procedure; Y92.234 Operating room of hospital as the place of occurrence of the external cause; E78.00 Pure hypercholesterolemia, unspecified; I10 Essential (primary) hypertension; Z82.49 Family history of ischemic heart disease and other diseases of the circulatory system; E66.9 Obesity, unspecified; E78.5 Hyperlipidemia, unspecified; Z85.3 Personal history of malignant neoplasm of breast; E83.51 Hypocalcemia
CPT/HCPCS: 36247; 36415; 37186; 37211; 37224; 37228; 71045; 75625; 75710; 76000; 76937; 80048; 80053; 82550; 82553; 82948; 84484; 85025; 85347; 85610; 85730; 86850; 86900; 86920; 93005; 94002; 99152; 99153; C1725; C1751; C1757; C1766; C1769; C1874; C1887; C1894; J0171; J0330; J0690; J1170; J1200; J1644; J1817; J2001; J2250; J2270; J2405; J2997; J3010; J7030; P9016; Q9967; U0002